=== PATIENT | female | born 1990 | race Two or more races ===

== ENCOUNTER 2024-07-11 12:17 | Emergency (ER) | payer MEDICAID, SELFPAY ==
[2024-07-11 13:03] VITALS: BP 128/96; PULSE 72; RESP 18; TEMP 36.8; O2SAT 99; BMI 24.5
--- NOTE | 2024-07-11 13:18 | XR_ITS ---
EXAMINATION: US OB <= 14 weeks fetus ORDERING PROVIDER: Selma Archuleta NP HISTORY: Generalized abdominal pain, 9 weeks per patient. Denies vaginal bleeding. TECHNIQUE: Multiplanar still ultrasonography of the pelvis was performed using grayscale imaging, supplemented by color and spectral Doppler as needed. Images were performed transabdominally . COMPARISON: None. FINDINGS: Last Menstrual Period: 05/08/2024 Uterus measures 11.3 x 7.9 x 9.2 cm. Gravid uterus. Mean gestational sac diameter 4.2 cm. [place]-rump length 2.5 cm. Yolk sac 0.4 cm. heart rate 158 bpm. No subchorionic hemorrhage identified. Clinical age 9 weeks 1 day. Sonographic age by crown-rump length 9 week 1 day. Cervical length 3.8 cm. Right ovary measures 2.6 x 1.0 x 2.3 cm with color and Doppler flow. Left ovary measures 1.9 x 1.2 x 2.2 cm with color and Doppler flow. No free fluid. No adnexal masses identified. IMPRESSION: Single live intrauterine gestation with concordant sonographic and clinical dates.
--- NOTE | 2024-07-11 13:19 | EDRME_ITS ---
Rapid Medical Screening Exam RME Arrival date/time: 07/11/24 12:17 This is a 34-year-old female that comes in with complaints of abdominal pain for the past 2 weeks. Patient reports that she is approximately 9 weeks . Patient is a 7 para 6. Patient also complains of urinary symptoms. Patient complains of nausea vomiting and headache with the . Patient also complains of dysuria and urinary frequency. I have greeted and performed a focused initial assessment of this patient. Init ial appropriate labs ordered at this time. A comprehensive ED assessment and evaluation of the patient and analysis of all test and completion of medical decision making process will be conducted by additional ED provider. Chief Complaint: Abdominal Pain Time Seen by Provider: 07/11/24 12:47 Vital signs: Vital Signs Temperature 98.2 F 07/11/24 13:03 Pulse Rate 72 07/11/24 13:03 Respiratory Rate 18 07/11/24 13:03 Blood Pressure 128/96 H 07/11/24 13:03 Pulse Oximetry (%) 99 07/11/24 13:03 Oxygen Delivery Method Room Air 07/11/24 13:03
[2024-07-11 13:40] LABS: Basophils # (Auto) 0.1 Thou/mm3 (0.0-0.2); Basophils % (Auto) 1 % (0-2.5); Eosinophils # (Auto) 0.1 Thou/mm3 (0.0-0.5); Eosinophils % (Auto) 1 % (0-10); Hematocrit 35.8 % (36.0-46.0); Hemoglobin 12.2 g/dL (12.0-16.0); Immature Granulocytes % (Auto) 0 % (0-0); Immature Granulocytes Auto 0.02 Thou/mm3 (0.00-0.00); Lymphocytes # (Auto) 1.5 Thou/mm3 (1.0-4.8); Lymphocytes % (Auto) 20 % (10-50); Mean Corpuscular HGB Conc 34.1 g/dl (31.0-37.0); Mean Corpuscular Hemoglobin 30.4 pg (25.0-35.0); Mean Corpuscular Volume 89 fL (80-100); Monocytes # (Auto) 0.5 Thou/mm3 (0.0-0.8); Monocytes % (Auto) 6 % (0-12); Neutrophils # (Auto) 5.6 Thou/mm3 (1.8-7.7); Neutrophils % (Auto) 72 % (37-80); Nucleated Red Blood Cell % 0 /100 WBC (0); Platelet Count 218 Thou/mm3 (140-440); RDW Standard Deviation 43.8 fL (36.4-46.3); Red Blood Count 4.01 Miln/mm3 (4.00-5.20); White Blood Count 7.8 Thou/mm3 (3.6-11.0)
[2024-07-11 14:57] LABS: Alanine Aminotransferase 8 U/L (10-49); Albumin, Serum 4.3 gm/dL (3.5-5.0); Albumin/Globulin Ratio 1.5 (1.2-2.2); Alkaline Phosphatase 45 U/L (46-116); Anion Gap 9 (7-16); Aspartate Amino Transferase 12 U/L (0-34); BUN/Creatinine Ratio 9 Ratio (12-20); Bilirubin,Total 0.7 mg/dL (0.3-1.2); Blood Urea Nitrogen 6 mg/dL (9-23); Calcium 9.2 mg/dL (8.3-10.6); Calcium (Corrected) 9.2 mg/dL (8.5-10.1); Carbon Dioxide 21.8 mMol/L (20.0-31.0); Chloride 104 mMol/L (98-107); Creatinine (Component) 0.7 mg/dL (0.6-1.3); Estimated Creatinine Clearance 91.9 mL/min (>60); Globulin 2.9 gm/dL (2.3-3.5); Glucose 74 mg/dL (74-106); Lipase 35 U/L (12-53); Osmolality,Calculated 266 (275-295); Potassium 3.5 mMol/L (3.4-5.1); Sodium 135 mMol/L (136-145); Total Protein 7.2 gm/dL (5.7-8.2); eGFR > 60 See Note
[2024-07-11 15:29] LABS: Beta HCG,Quantitative 218006 mIU/mL (<5.0)
--- NOTE | 2024-07-11 15:43 | PD.EDADULT ---
ED General RME/HPI General Chief complaint: Abdominal Pain Stated complaint: ABD PAIN, POSS UTI, 9 WKS PREG Time Seen by Provider: 07/11/24 12:47 Arrival date/time: 07/11/24 12:17 RME / HPI RME / HPI narrative: 07/11/24 12:17 This is a 34-year-old female that comes in with complaints of abdominal pain for the past 2 weeks. Patient reports that she is approximately 9 weeks . Patient is a 7 para 6. Patient also complains of urinary symptoms. Patient complains of nausea vomiting and headache with the . Patient also complains of dysuria and urinary frequency. I have greeted and performed a focused initial assessment of this patient. Initial appropriate labs ordered at this time. A comprehensive ED assessment and evaluation of the patient and analysis of all test and completion of medical decision making process will be conducted by additional ED provider. DR. ALBRECHT MAIN ED EVALUATION: Related Data Home Medications ?Medication ?Instructions ?Recorded ?Confirmed No Known Home Medications 09/15/20 09/15/20 Allergies Allergy/AdvReac Type Severity Reaction Status Date / Time No Known Allergies Allergy Verified 07/11/24 12:21 Course Orders Category Date Time Status US OB <= 14 weeks fetus Stat Exams 07/11/24 13:18 Completed ABO/RH Type - Stat Lab 07/11/24 13:29 Completed Beta HCG,Quantitative Stat Lab 07/11/24 13:29 Completed CBC Stat Lab 07/11/24 13:29 Completed Comprehensive Metabolic Panel Stat Lab 07/11/24 13:29 Completed Lipase Stat Lab 07/11/24 13:29 Completed Urinalysis, C/S if Indicated Stat Lab 07/11/24 13:18 Ordered Urine Culture Stat Lab 07/11/24 13:19 Ordered Vital Signs Vital signs: Vital Signs Temperature 98.2 F 07/11/24 13:03 Pulse Rate 72 07/11/24 13:03 Respiratory Rate 18 07/11/24 13:03 Blood Pressure 128/96 H 07/11/24 13:03 Pulse Oximetry (%) 99 07/11/24 13:03 Oxygen Delivery Method Room Air 07/11/24 13:03 Medical Decision Making MDM Narrative MDM Narrative: IJesica, am scribing for and in the presence of Dr. Albrecht. Lab Data 07/11/24 13:29 07/11/24 13:29 Labs: Lab Results 07/11/24 Range/Units 13:29 WBC 7.8 (3.6-11.0) Thou/mm3 RBC 4.01 (4.00-5.20) Miln/mm3 Hgb 12.2 (12.0-16.0) g/dL Hct 35.8 L (36.0-46.0) % MCV 89 (80-100) fL MCH 30.4 (25.0-35.0) pg MCHC 34.1 (31.0-37.0) g/dl RDW Std Deviation 43.8 (36.4-46.3) fL Plt Count 218 (140-440) Thou/mm3 Neut % (Auto) 72 (37-80) % Lymph % (Auto) 20 (10-50) % [place] % (Auto) 6 (0-12) % Eos % (Auto) 1 (0-10) % Baso % (Auto) 1 (0-2.5) % Neut # (Auto) 5.6 (1.8-7.7) Thou/mm3 Lymph # (Auto) 1.5 (1.0-4.8) Thou/mm3 [place] # (Auto) 0.5 (0.0-0.8) Thou/mm3 Eos # (Auto) 0.1 (0.0-0.5) Thou/mm3 Baso # (Auto) 0.1 (0.0-0.2) Thou/mm3 Immature Gran # (Auto) 0.02 H (0.00-0.00) Thou/mm3 Absolute Nucleated RBC 0.00 (0.00-0.00) Thou/mm3 Immature Gran % 0 (0-0) % Nucleated RBC % 0 (0) /100 WBC Sodium 135 L (136-145) mMol/L Potassium 3.5 (3.4-5.1) mMol/L Chloride 104 (98-107) mMol/L Carbon Dioxide 21.8 (20.0-31.0) mMol/L Anion Gap 9 (7-16) BUN 6 L (9-23) mg/dL Creatinine 0.7 (0.6-1.3) mg/dL Estim Creat Clear Calc 91.9 (>60) mL/min eGFR > 60 (60 - ) See Note BUN/Creatinine Ratio 9 L (12-20) Ratio Glucose 74 (74-106) mg/dL Calculated Osmolality 266 L (275-295) Calcium 9.2 (8.3-10.6) mg/dL Corrected Calcium 9.2 (8.5-10.1) mg/dL Total Bilirubin 0.7 (0.3-1.2) mg/dL AST 12 (0-34) U/L ALT 8 L (10-49) U/L Alkaline Phosphatase 45 L (46-116) U/L Total Protein 7.2 (5.7-8.2) gm/dL Albumin 4.3 (3.5-5.0) gm/dL Globulin 2.9 (2.3-3.5) gm/dL Albumin/Globulin Ratio 1.5 (1.2-2.2) Lipase 35 (12-53) U/L Beta HCG, Quant 261246 (<5.0) mIU/mL Blood Type A Positive Comment Comment Blood Bank Wristband ID Yes Discharge Plan Prescriptions/Referrals Prescriptions/Med Rec: No Action No Known Home Medications Referrals: Amirah Sosa NP [Primary Care Provider] - In 1 week Patient/Caregiver Discharge Instructions Print Language: Lithuanian
[2024-07-11 16:39] LABS: Collection Type, Urine Voided
[2024-07-11 17:48] LABS: Bacteria,Urine Rare; Bilirubin,Urine Negative (Negative); Blood,Urine Negative (Negative); Clarity,Urine Clear (Clear/Hazy); Color,Urine Yellow (Lt Yel-Yel); Culture Indicated,Urine Not Indicated; Glucose, Urine Negative (Negative); Ketones,Urine Negative (Negative); Leukocyte Esterase,Urine Negative (Negative); Nitrite,Urine Negative (Negative); Protein,Urine Negative (Neg - Trace); RBC,Urine 5 /hpf (0-3); Specific Gravity,Urine 1.026 (1.001-1.035); Squamous Epithelial Cell,Urine 7 /hpf (0-5); Urobilinogen,Urine Negative mg/dL (0.0-1.0); WBC,Urine 1 /hpf (0-5)
--- NOTE | 2024-07-11 19:52 | EDNOTE_ITS ---
ED Abdominal Pain RME/HPI General Chief Complaint: Abdominal Pain Stated complaint: ABD PAIN, POSS UTI, 9 WKS PREG Time seen by provider: 07/11/24 12:47 Arrival date/time: 07/11/24 12:17 Source: patient Mode of arrival: ambulatory Limitations: no limitations RME / HPI RME / HPI narrative: 07/11/24 12:17 This is a 34-year-old female that comes in with complaints of abdominal pain for the past 2 weeks. Patient reports that she is approximately 9 weeks . Patient is a 7 para 6. Patient also complains of urinary symptoms. Patient complains of nausea vomiting and headache with the . Patient also complains of dysuria and urinary frequency. I have greeted and performed a focused initial assessment of this patient. Initial appropriate labs ordered at this time. A comprehensive ED assessment and evaluation of the patient and analysis of all test and completion of medical decision making process will be conducted by additional ED provider. Dr. Gordillo?s Main ED Evaluation: 34-year-old female history of appendectomy presents to the ED with a two-week history of abdominal pain, worsening over the past two days, accompanied by dysuria and urinary frequency. She reports being approximately 9 weeks () and experiencing nausea, vomiting, and headache associated with the p regnancy. She denies fever, vaginal bleeding, or other acute symptoms. Related Data Previous Rx's ?Medication ?Instructions ?Recorded nitrofurantoin macrocrystal 100 mg 100 mg PO BID #20 c aps 07/11/24 capsule Allergies Allergy/AdvReac Type Severity Reaction Status Date / Time No Known Allergies Allergy Verified 07/11/24 12:21 Review of Systems Review of Systems Systems Reviewed: All systems reviewed, normal except as documented Past Medical History Past Medical History NEUROLOGIC: Positive Migraine; Negative Neurological Disorders or Seizures CARDIAC: Negative Cardiac Disorders or Congestive Heart Failure RESPIRATORY: Negative Chronic Obstructive Pulmonary Disease (COPD) or Asthma GASTROINTESTINAL: Negative Gastrointestinal Disorders GENITOURINARY: Positive Genitourinary Disorders (UTI) and Kidney Stones; Negative Renal Disease REPRODUCTIVE: Positive Genital Herpes and Previous Pregnancies; Negative Endometriosis, Pelvic Inflammatory Disease or Uterine Prolapse MUSCULOSKELETAL: Negative Musculoskeletal Disorders ENDOCRINE: Negative Endocrine Disorders, Diabetes Mellitus Type 1 or Diabetes Mellitus Type 2 HEMATOLOGIC: Negative Blood Disorders or Anemia PSYCHO/SOCIAL: Positive Anxiety and Post Traumatic Stress Disorder OTHER HISTORY: Positive Hospitalization; Negative Autoimmune Disease, Falls, Blood Transfusions, Blood Transfusion Nell ction, Anesthesia Reactions or Cancer Family History FAMILY HISTORY: Negative Family Psychiatric Problems, Family Respiratory Disorders, Family Cardiac Disorders, Family Gastrointestinal Problems, Family Cancer, Family Surgery or Family Anesthesia Reaction Surgical History SURGICAL: Positive Section Social History SMOKING STATUS: Never smoker ED Exam Narrative Physical exam: GENERAL: In general the patient is awake, interactive, in an emergency department gurney. HEAD/EYES/EARS/NOSE/THROAT: normo-cephalic, atraumatic, mucus membranes are moist. No cervical tenderness palpation midline. Supple neck. CARDIOVASCULAR: regular rate and regular rhythm, no murmurs, heart sounds are not distant, strong pulses in all four extremities that are equal and symmetric bilateral upper and lower extremities, normal capillary refill. CHEST/PULMONARY: normal chest rise and fall, good air movement, clear to auscultation bilaterally, normal inspiratory to expiratory ratios without evidence of respiratory distress. ABDOMEN: soft, not tender, no masses appreciated BACK: normal range of motion without pain. NEUROLOGICAL: cranio-facial features are symmetric, moves all four extremities equally without obvious limitations or weakness. EXTREMITY: no tenderness to palpation over the long bones or large joints of the bilateral upper and lower extremities, no joint swelling, no joint erythema, no signs of trauma, no unilateral leg swelling and no peripheral edema. SKIN: warm, dry, well-perfused, no jaundice, no rash, no telangiectasias or petechia. PSYCH: calm, cooperative, no evidence of psychosis or agitation General Limitations: Present no limitations Course Quality Measures none Orders Category Date Time Status US OB <= 14 weeks fetus Stat Exams 07/11/24 13:18 Completed ABO/RH Type - Stat Lab 07/11/24 13:29 Completed Beta HCG,Quantitative Stat Lab 07/11/24 13:29 Completed CBC Stat Lab 07/11/24 13:29 Completed Comprehensive Metabolic Panel Stat Lab 07/11/24 13:29 Completed Lipase Stat Lab 07/11/24 13:29 Completed Urinalysis, C/S if Indicated Stat Lab 07/11/24 16:25 Completed Urine Culture Stat Lab 07/11/24 16:25 Received Vital Signs Vital signs: Vital Signs Temperature 98.2 F 07/11/24 13:03 Pulse Rate 72 07/11/24 13:03 Respiratory Rate 18 07/11/24 13:03 Blood Pressure 128/96 H 07/11/24 13:03 Pulse Oximetry (%) 99 07/11/24 13:03 Oxygen Delivery Method Room Air 07/11/24 13:03 Abdominal Pain MDM MDM Narrative MDM Narrative:: Differential diagnoses include ectopic , urinary tract infection (UTI), asymptomatic bacteremia, and discomfort from a growing fetus. Scribe Attestation: I, Emmanuel Sosa, am scribing for and in the presence of Dr. Gordillo. Provider Notation: Although this document has been carefully reviewed, there may still be some phonetic and other typographical errors. These errors are purely grammatical due to imperfections in the software program and should not be construed in any way to compromise the substance of the patient's medical care during this visit. Patient data External records reviewed:: [facility] previous records Clinical information provided by:: patient Social determinants that could affect healthcare access:: none Patient has the following chronic illnesses:: see PMH How is presenting disease/condition affected by chronic disease/condition?: uneffected by Evaluation data The following diagnostics were reviewed and interpreted by me:: lab results and radiology exam(s) Lab and/or radiology exams considered but not ordered:: na Interpretation Summary: I personally reviewed the radiology data and agree with the radiologist's interp retation. EXAMINATION: US OB <= 14 weeks fetus ORDERING PROVIDER: Selma Archuleta NP HISTORY: Generalized abdominal pain, 9 weeks per patient. Denies vaginal bleeding. TECHNIQUE: Multiplanar still ultrasonography of the pelvis was performed using grayscale imaging, supplemented by color and spectral Doppler as needed. Images were performed transabdominally . COMPARISON: None. FINDINGS: Last Menstrual Period: 05/08/2024 Uterus measures 11.3 x 7.9 x 9.2 cm. Gravid uterus. Mean gestational sac diameter 4.2 cm. [place]-rump length 2.5 cm. Yolk sac 0.4 cm. heart rate 158 bpm. No subchorionic hemorrhage identified. Clinical age 9 weeks 1 day. Sonographic age by crown-rump length 9 week 1 day. Cervical length 3.8 cm. Right ovary measures 2.6 x 1.0 x 2.3 cm with color and Doppler flow. Left ovary measures 1.9 x 1.2 x 2.2 cm with color and Doppler flow. No free fluid. No adnexal masses identified. IMPRESSION: Single live intrauterine gestation with concordant sonographic and clinical dates. Dictated By: Cortez Rich MD Medications / Prescriptions Medications or Prescriptions considered but not ordered:: na Medication administrations:: as above, if any Consultations Consultation(s) initiated? (list below): No Diagnosis Differential diagnosis abdominal pain: other (see narrative) Most likely diagnosis given after review of the tests above:: see clinical impression below Admission Indicated Admission indicated?: not indicated Admission Request Was there a request for admission?: No Disposition Plan Disposition Plan: Discharge Discharge Attestation Discharge Attestation: The patient and all family members were given an opportunity to ask questions and understood the discharge instructions. Discharge instructions specifically effects, indications for sooner follow up or return to the emergency department, and the expected course of current diagnosis. Patient condition: Stable Discharge Plan Plan Patient Disposition: HOME (Self Care) Patient condition on transfer: Stable Prescriptions/Referrals Prescriptions/Med Rec: New nitrofurantoin macrocrystal 100 mg capsule 100 mg PO BID Qty: 20 0RF Rx Instructions: must administer with a meal/food Referrals: Amirah Sosa NP [Primary Care Provider] - 07/16/24 Problem List Clinical Impression: Asymptomatic bacteriuria, First trimester Patient/Caregiver Discharge Instructions Education Materials: Dysuria Additional Instructions: -Today your white count was normal at 7.8. Your hemoglobin is stable at 12. Kidney function is normal. Your urine shows that you are slightly dehydrated with 1 white cell, 7 squamous cells and rare bacteria. -The ultrasound shows: Uterus measures 11.3 x 7.9 x 9.2 cm. Gravid uterus. Mean gestational sac diameter 4.2 cm. [place]-rump length 2.5 cm. Yolk sac 0.4 cm. heart rate 158 bpm. No subchorionic hemorrhage identified. Clinical age 9 weeks 1 day. Sonographic age by crown-rump length 9 week 1 day. Cervical length 3.8 cm. Right ovary measures 2.6 x 1.0 x 2.3 cm with color and Doppler flow. Left ovary measures 1.9 x 1.2 x 2.2 cm with color and Doppler flow. No free fluid. No adnexal masses identified. IMPRESSION: Single live intrauterine gestation with concordant sonographic and clinical dates. 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 You have elected to take the antibiotics for bacteria in your urine. Please complete them. You will need to follow-up with your primary care and/or TEXT[employer]ER to get the results of the urine culture that takes 72 hours to come back. -Return to the emergency department before your appointment if you are having back pain, fever, vomiting, any vaginal discharge, or any other concerns Print Language: Somali Stand Alone Forms: [employer] Award Info., Patient Portal Info Letter
== END 2024-07-11 20:13 | disposition home or self-care (01) ==
PROVIDERS: Nurse Practitioner Family; Emergency Provider Emergency Medicine; PCP Nurse Practitioner Family
DX: O99.891 Other specified diseases and conditions complicating pregnancy (principal); R82.71 Bacteriuria; Z3A.09 9 weeks gestation of pregnancy
CPT/HCPCS: 36415; 76801; 80053; 81001; 83690; 84702; 85025; 86900; 86901; 87086; 99284

== ENCOUNTER 2024-12-19 09:30 | Observation (INO) | payer SELFPAY ==
[2024-12-19 09:40] VITALS: BP 128/71; PULSE 75; RESP 16; RESP 98; TEMP 36.8
[2024-12-19 09:41] VITALS: BP 128/71; PULSE 75
[2024-12-19 09:46] VITALS: BMI 29.2
[2024-12-19 10:13] VITALS: BP 112/61; PULSE 77
[2024-12-19 10:42] VITALS: BP 113/62; PULSE 76
[2024-12-19 11:11] VITALS: BP 113/62; PULSE 73
== END 2024-12-19 11:25 | disposition home or self-care (01) ==
PROVIDERS: Admitting Provider Obstetrics & Gynecology; Visit Provider Obstetrics & Gynecology
DX: O26.893 Other specified pregnancy related conditions, third trimester (principal); Z3A.32 32 weeks gestation of pregnancy; R10.2 Pelvic and perineal pain
CPT/HCPCS: 59025; 59899

== ENCOUNTER 2025-02-05 10:30 | Inpatient (IN) | payer MEDICAID, SELFPAY ==
--- NOTE | 2025-02-04 08:14 | ESHP_ITS ---
RE: KI BRIAN : 1990 DATE OF ADMISSION: 02/05/2025 HISTORY OF PRESENT ILLNESS: This is a 35-year-old 7, para 6-0-0-6 with due date of 02/12 with intrauterine at 39 weeks' gestation who presents for repeat delivery. She desires voluntary sterilization. She denies any leaking or bleeding. She reports normal movement. She has occasional contractions. ALLERGIES: NO KNOWN DRUG ALLERGIES. MEDICATIONS: 1. multivitamin 1 p.o. daily. 2. Aspirin 81 mg 1 p.o. daily. 3. Ferrous sulfate 325 mg 1 p.o. daily. PAST MEDICAL HISTORY: Genital herpes, lipoma, delivery, posttraumatic stress disorder, rubella nonimmune, depression, right ovarian cyst, advanced maternal age, appendicitis. PAST SURGICAL HISTORY: delivery in 2016 and 2020 and appendectomy. FAMILY HISTORY: Mother with migraine headaches, diabetes, hypertension. OBSTETRIC HISTORY: 2001, 40-week normal vaginal delivery 7 pounds 2 ounce female, no complications. 2004, 40 week, normal vaginal delivery, 7 pound male, no complications. 2007, 40-week normal vaginal delivery, 7 pound female, no complications. 2015, 40 week, normal vaginal delivery, 8 pound male, no complications. 2016, 40 weeks delivery, 7 pound 14 ounce male, complicated by genital herpes. 2020, 40-week delivery, 7 pounds 2 ounce female. REVIEW OF SYSTEMS: She denies any chest pain, palpitations, cough, fever, shortness of breath or lower extremity pain. She denies any headache, change in vision or right upper quadrant pain. PHYSICAL EXAMINATION: VITAL SIGNS: Blood pressure 120/74, heart rate 88, respirations 18, temperature 98.6. HEENT: Oropharynx and sclerae are clear. LUNGS: Clear to auscultation bilaterally. HEART: Regular rate and rhythm. ABDOMEN: Gravid term size, old Pfannenstiel scar noted. EXTREMITIES: Nontender. SKIN: No gross rashes or lesions. NEUROLOGIC: No focal deficits. ASSESSMENT AND PLAN: Intrauterine at 39 weeks. Previous delivery, elects repeat delivery. Multiparity desires voluntary sterilization. PLAN: Repeat delivery and bilateral tubal ligation. Informed consent was obtained. The patient was made aware of the risks, complications, alternatives, and benefits of delivery and bilateral tubal ligation. She is aware of the failure rate and the increased risk of tubal ectopic gestation if occurs. She is aware that vasectomy is simpler, easier and safer with a lower failure rate. She is aware of the reversible methods of control. She declines those options. DT: 06:49:29 TT: 08:00:00 Ref: [id number] - TID: [id number] [facility]
[2025-02-04 12:08] LABS: Basophils # (Auto) 0.1 Thou/mm3 (0.0-0.2); Basophils % (Auto) 1 % (0-2.5); Eosinophils # (Auto) 0.1 Thou/mm3 (0.0-0.5); Eosinophils % (Auto) 1 % (0-10); Hematocrit 35.4 % (36.0-46.0); Hemoglobin 11.8 g/dL (12.0-16.0); Immature Granulocytes Auto 0.09 Thou/mm3 (0.00-0.00); Lymphocytes # (Auto) 1.7 Thou/mm3 (1.0-4.8); Lymphocytes % (Auto) 23 % (10-50); Mean Corpuscular HGB Conc 33.3 g/dl (31.0-37.0); Mean Corpuscular Hemoglobin 31.1 pg (25.0-35.0); Mean Corpuscular Volume 93 fL (80-100); Monocytes # (Auto) 0.5 Thou/mm3 (0.0-0.8); Monocytes % (Auto) 6 % (0-12); Neutrophils # (Auto) 5.2 Thou/mm3 (1.8-7.7); Neutrophils % (Auto) 68 % (37-80); Nucleated Red Blood Cell # 0.00 Thou/mm3 (0.00-0.00); Nucleated Red Blood Cell % 0 /100 WBC (0); Platelet Count 189 Thou/mm3 (140-440); RDW Standard Deviation 55.8 fL (36.4-46.3); Red Blood Count 3.79 Miln/mm3 (4.00-5.20); White Blood Count 7.6 Thou/mm3 (3.6-11.0)
[2025-02-04 12:20] LABS: Alanine Aminotransferase 15 U/L (10-49); Albumin, Serum 4.1 gm/dL (3.5-5.0); Albumin/Globulin Ratio 1.5 (1.2-2.2); Alkaline Phosphatase 120 U/L (46-116); Anion Gap 12 (7-16); Aspartate Amino Transferase 24 U/L (0-34); BUN/Creatinine Ratio 13 Ratio (12-20); Bilirubin,Total 0.6 mg/dL (0.3-1.2); Blood Urea Nitrogen 8 mg/dL (9-23); Calcium 9.1 mg/dL (8.3-10.6); Calcium (Corrected) 9.1 mg/dL (8.5-10.1); Carbon Dioxide 21.3 mMol/L (20.0-31.0); Chloride 106 mMol/L (98-107); Creatinine (Component) 0.6 mg/dL (0.6-1.3); Globulin 2.7 gm/dL (2.3-3.5); Glucose 81 mg/dL (74-106); Osmolality,Calculated 274 (275-295); Potassium 3.8 mMol/L (3.4-5.1); Sodium 139 mMol/L (136-145); Total Protein 6.8 gm/dL (5.7-8.2); eGFR > 60 See Note
[2025-02-04 12:24] LABS: INR 0.9 (0.9-1.3); Partial Thromboplastin Time 26.3 Seconds (22.0-36.0); Prothrombin Time 9.6 Seconds (9.0-12.2)
[2025-02-04 12:39] LABS: Syphilis Nonreactive (Nonreactive)
[2025-02-05] VITALS (30 sets, daily range): BP systolic 117–144; BP diastolic 57–88; PULSE 66–96; RESP 15–20; TEMP 36.8–36.9; O2SAT 97–100; BMI 30.7
[2025-02-05] MEDS: RINGERS LACTATED 1000 ML 1,000 ML 100 ML IV (11:15)
[2025-02-05] MEDS: ceFAZolin/D5W 2 GM IV 2 GM/100 ML BAG IV (12:18)
[2025-02-05] MEDS: FAMOTIDINE INJ 10 MG/ML VIAL 2 ML 20 MG IV (12:19)
--- NOTE | 2025-02-05 12:40 | PD.LDDS ---
DS: Providers Provider Date of admission: 02/05/25 10:30 Primary care physician: Jun Gutierres MD Admitting Provider: Dwight Huerta MD Attending Provider on Admission: Dwight Huerta MD Attending Provider on DC: Dwight Huerta MD Discharging Provider: Dwight Huerta MD DS: Diagnosis Problem List Completed Was Problem List Reviewed/Reconciled?: Yes Summary/Hosp Course Peripartum Data Procedures: Procedures Operation Date: 02/05/25 12:45 <No data on this case meets the specified criteria> Time Spent with Patient Time attestation: Total time spent providing and/or coordinating discharge services: Exam Vital Signs Pulse BP Pulse Ox 77 117/71 100 02/05/25 11:10 02/05/25 11:10 02/05/25 12:31 Discharge Plan Plan Patient Disposition: HOME (Self Care) Patient condition on transfer: Stable Prescriptions/Referrals Prescriptions/Med Rec: New ibuprofen 600 mg tablet 600 mg PO Q6H PRN (Reason: pain) Qty: 30 0RF Continued ferrous sulfate [FeroSul] 325 mg (65 mg iron) tablet 325 mg PO QDAY Patient Comments: TAKE ONE TABLET BY MOUTH EVERY DAY VITAMIN WITH ORANGE JUICE Vitamin 27 mg iron- 800 mcg tablet 1 tab PO QDAY Patient Comments: TAKE ONE TABLET BY MOUTH EVERY DAY VITAMIN Referrals: Jun Gutierres MD [Primary Care Provider, Family Practice] Patient/Caregiver Discharge Instructions Discharge Activity: activity as tolerated Other Discharge Activity Instructions:: follow up office 1 week. She already has a Rx for [place]. Education Materials: C Section Dc Print Language: Turkmen Stand Alone Forms: [employer] Award Info., Patient Portal Info Letter Planned Discharge Date 02/07/25
--- NOTE | 2025-02-05 12:41 | ESOP_ITS ---
Operative Note - KINDERGARTEN ASSISTANT Procedure Date of procedure: 02/05/25 Procedure Performed: Repeat low-transverse section via Fenistil skin incision Bilateral salpingectomy Indication: Intrauterine at 39 weeks and 0 days Previous delivery Elects repeat delivery Multiparity desires voluntary sterilization Pre-Op diagnosis: Intrauterine at 39 weeks and 0 days Previous delivery Elects repeat delivery Multiparity desires voluntary sterilization Post-Op diagnosis: Intrauterine at 39 weeks and 0 days Previous delivery Elects repeat delivery Multiparity desires voluntary sterilization Uterine atony Anesthesia type: Spinal Procedure description: After proper informed consent was obtained and the patient was made aware of the risks, complications, alternatives and benefits of the proposed procedure she was taken to the operating room where she underwent induction of spinal anesthesia. She was prepped and draped in the usual sterile fashion. A timeout was performed.? A Pfannenstiel skin incision was made with the scalpel and carried through to the underlying layer of fascia with the Bovie. The fascia was nicked in the midline incision and the incision was extended bilaterally with the Bovie. The inferior aspect of the fascial incision was grasped with Dave clamps elevated and the underlying rectus muscle dissected off with the Bovie. The superior aspect the fascial incision was grasped with Dave clamps elevated and the underlying rectus muscle dissected off with the Bovie. The rectus muscles were in the midline. The peritoneum was grasped between 2 Rogers clamps and entered sharply with the Metzenbaum scissors. The peritoneum was extended superiorly and inferiorly with good visualization of the bladder. The vesicouterine peritoneum was incised transversely and the bladder flap created digitally. A Yousuf blade was inserted. A low transverse incision was made in the uterus with a scapel and the incision was extended digitally. The infant's head delivered and the mouth and nose were suctioned with the bulb suction. The shoulder and body delivered atraumatically. The cord was clamped after 30 second delayed cord clamping and the cord was cut.? The infant was handed off to the waiting Pediatric staff, cord blood was collected for lab testing. The placenta was removed complete and intact. The uterus was exteriorized and cleared of all clots and debris. The uterus was initially atonic but responded to uterotonic's. The uterine incision was closed with #1-0 chromic catgut suture in a running interlocking fashion. A second layer of the same suture was used to imbricate the first layer and obtain excellent hemostasis. The vesicouterine peritoneum was closed with 2-0 chromic catgut suture in a running fashion. Atte ntion was turned to the left fallopian tube which was grasped at the fimbriated end with a Westdale clamp and using the Enseal X-1 large jaw a left salpingectomy was performed. Hemostasis achieved. Attention was turned to the right fallopian tube which was grasped at the fimbriated end with a Westdale clamp and using the Enseal X-1 large jaw a left salpingectomy was performed. Hemostasis achieved. T he firm uterus was returned to the abdomen. The gutters were cleared of all clots and debris. The adnexae were revisualized along with the lower uterine segment and all was hemostatic. The peritoneum was closed with 0 chromic catgut suture in running fashion. The rectus muscle was closed with 0 chromic catgut suture. The fascia was closed with 0 Vicryl beginning at each angle and ending in the center in a running fashion. The subcutaneous tissue was irrigated with warmed normal saline solution and found to be hemostatic. The subcutaneous tissue was closed with 2-0 chromic catgut suture in a running fashion. The skin was closed with 4-0 Monocryl. A Dermabond Prineo dressing was applied and a sterile pressure dressing was applied.? She tolerated the procedure well. Counts were correct. I discussed with the patient the nature of her condition, intraoperative findings and expectation for recovery all questions answered. Fluids: other (see anesthesia record) Fluid amount (mL): 800 Urine output (mL): 150 Specimen: left tube and right tube Estimated blood loss (ml): 800 Findings: Live female infant Apgars 8 and 9 Cephalic presentation Weight 3410g Clear amniotic fluid Placenta removed complete and intact Uterus ovaries and fallopian tubes grossly within normal limits Complications: other (Uterine atony responding to Pitocin. Methergine and Cytotec, also given TXA) Surgical staff Operation Date: 02/05/25 12:45 <No data on this case meets the specified criteria> CARLOS Romero's [employer] SUPERVISORHarrison Huerta Surgeon Diagnosis Discharge Diagnosis (1) delivery delivered: Status: Acute (2) Status post bilateral salpingectomy: Status: Acute (3) Uterine atony: Status: Acute Problem List Completed Was Problem List Reviewed/Reconciled?: Yes
[2025-02-05] MEDS: ACETAMINOPHEN IVPB 1,000 MG/100 ML VIAL 250 MG IV (15:24)
[2025-02-05 19:42] LABS: Basophils # (Auto) 0.1 Thou/mm3 (0.0-0.2); Basophils % (Auto) 0 % (0-2.5); Eosinophils # (Auto) 0.0 Thou/mm3 (0.0-0.5); Eosinophils % (Auto) 0 % (0-10); Hematocrit 32.6 % (36.0-46.0); Hemoglobin 11.4 g/dL (12.0-16.0); Immature Granulocytes Auto 0.17 Thou/mm3 (0.00-0.00); Lymphocytes # (Auto) 1.1 Thou/mm3 (1.0-4.8); Lymphocytes % (Auto) 6 % (10-50); Mean Corpuscular HGB Conc 35.0 g/dl (31.0-37.0); Mean Corpuscular Hemoglobin 31.4 pg (25.0-35.0); Mean Corpuscular Volume 90 fL (80-100); Monocytes # (Auto) 0.4 Thou/mm3 (0.0-0.8); Monocytes % (Auto) 2 % (0-12); Neutrophils # (Auto) 16.2 Thou/mm3 (1.8-7.7); Neutrophils % (Auto) 91 % (37-80); Nucleated Red Blood Cell # 0.00 Thou/mm3 (0.00-0.00); Nucleated Red Blood Cell % 0 /100 WBC (0); Platelet Count 195 Thou/mm3 (140-440); RDW Standard Deviation 51.4 fL (36.4-46.3); Red Blood Count 3.63 Miln/mm3 (4.00-5.20); White Blood Count 17.8 Thou/mm3 (3.6-11.0)
[2025-02-05] MEDS: OXYTOCIN in NS 20 units 20 UNIT/1,000 ML BAG 125 UNIT IV (21:02)
[2025-02-06] VITALS: BP 110/62; PULSE 71; RESP 16; TEMP 36.9; O2SAT 99
[2025-02-06] MEDS: KETOROLAC INJ 30 MG/ML VIAL IVP (00:51)
[2025-02-06 04:00] VITALS: BP 123/74; PULSE 67; RESP 18; TEMP 36.7; O2SAT 98
--- NOTE | 2025-02-06 05:18 | PC.NURSE ---
Notify MD Huerta of pt's complaint of itchiness on her arms and legs. MD Huerta at bedside talking to pt. made new orders.
--- NOTE | 2025-02-06 06:35 | ESPR_ITS ---
RE: KI BRIAN : 1990 DATE OF SERVICE: 02/06/2025 S: Postop day #1, the patient complains of itching abdomen and legs without any rash seen. The patient denies any chest pain, palpitations, shortness of breath, or lower extremity pain. She denies any dizziness or lightheadedness. She denies any nausea or vomiting. She is tolerating a regular diet. She is passing flatus. She is voiding without difficulty. O: Vital Signs: Blood pressure 123/74, heart rate 67, respirations 18, temperature 98.1, pulse oximetry is 98% on room air. Lungs: Clear to auscultation bilaterally. Heart: Regular rate and rhythm. Abdomen: Dressing dry and intact. Fundus is firm. Extremities: Nontender. LABORATORY DATA: Hemoglobin pre-delivery is 11.8, post-delivery is 11.4. ASSESSMENT: Postop day #1, status post delivery and bilateral salpingectomy. P: Benadryl p.r.n. for itching, likely secondary to opioid analgesia. Remove dressing. Discontinue IV. Encourage ambulation. counseling and support. Possible discharge home tomorrow. DT: 05:50:56 TT: 06:34:00 Ref: [id number] - TID: [id number]
[2025-02-06 07:50] VITALS: BP 118/71; PULSE 68; RESP 18; TEMP 36.7; O2SAT 97
[2025-02-06] MEDS: DOCUSATE SOD 100 MG CAPSULE PO (08:08)
[2025-02-06] MEDS: ACETAMINOPHEN 325 MG TABLET 650 MG PO (08:08)
[2025-02-06] MEDS: ENOXAPARIN SOD INJ 40 MG/0.4 ML SYRINGE SC (08:08)
[2025-02-06 11:40] VITALS: BP 106/66; PULSE 74; RESP 16; TEMP 36.8; O2SAT 99
[2025-02-06] MEDS: IBUPROFEN TAB 400 MG TABLET 800 MG PO ×2 (12:03→22:41)
[2025-02-06 15:15] VITALS: BP 100/60; PULSE 74; RESP 16; TEMP 36.9; O2SAT 99
[2025-02-06] MEDS: HYDROcodone/APAP 5/325 TABLET 1 TAB PO (15:25)
[2025-02-06 20:10] VITALS: BP 107/63; PULSE 73; RESP 16; TEMP 36.8; O2SAT 97
[2025-02-06] MEDS: HYDROcodone/APAP 5/325 TABLET 2 TAB PO (20:25)
[2025-02-07] VITALS: BP 103/65; PULSE 80; RESP 16; TEMP 37; O2SAT 98
[2025-02-07] MEDS: HYDROcodone/APAP 5/325 TABLET 2 TAB PO ×2 (02:30→08:39)
[2025-02-07 04:00] VITALS: BP 128/58; PULSE 80; RESP 18; TEMP 36.7; O2SAT 97
[2025-02-07] MEDS: IBUPROFEN TAB 400 MG TABLET 800 MG PO (06:33)
--- NOTE | 2025-02-07 06:56 | PD.LDDELS ---
Data (Adhikari) Data Hx Section: Yes : 7 Term: 6 : 0 Livin Abortions: Spontaneous & Theraputic: 0 Delivery Data (Adhikari) Labor Data ROM date: 02/05/25 ROM time: 13:07 Amniotic membrane rupture type: Artificial Amniotic fluid description: Clear Delivery Data delivery date: 02/05/25 [place] delivery time: 13:08 Placenta delivery date: 02/05/25 Placenta delivery time: 13:09 Delivered by: Dwight Huerta Delivery nurse: Tricia Jacques RN and Liat Ram RN [place] nurse: Monse Cabezas RN, Evette Hill RN Embossing Machine Operator at delivery: Yes (Nikole GILMAN) Support person(s) at delivery: FOB Other staff at delivery: Jermaine Banks CRNA, Riki Ramirez Delivery Method Delivery method: Low Transverse Presentation: Vertex Anesthesia Type Anesthesia Type: Spinal Anesthesia type: Spinal Placenta Placenta delivery description: Manual Removal Cord blood sent to lab: Yes cord blood collection: Cord Blood Type Episiotomy Episiotomy description: None Umbilical Cord cord description: 3 Vessels Data (Adhikari) [place] Data order: 1 [place]'s gender: Female weight (gms): 7 lb 8.284 oz Weight (pounds): 7 lbs and 8.3 ozs 1 minute: 9 5 minutes: 9
--- NOTE | 2025-02-07 07:18 | ESPR_ITS ---
RE: KI BRIAN : 1990 DATE OF SERVICE: 02/07/2025 SUBJECTIVE: Postop day #2: The patient denies any problem or complaint. OBJECTIVE: Vital Signs: Stable, afebrile. Lungs: Clear to auscultation bilaterally. Heart: Regular rate and rhythm. Abdomen: Incision clear and intact. Extremities: Nontender. ASSESSMENT: Postoperative day #2 status post delivery and bilateral salpingectomy, itching resolved. PLAN: Discharge home. Discharge instructions given. Follow up in the office in 1 week. DT: 06:57:29 TT: 07:16:00 Ref: [id number] - TID: [id number]
[2025-02-07 07:30] VITALS: BP 100/62; PULSE 69; RESP 17; TEMP 36.8; O2SAT 96
[2025-02-07] MEDS: ENOXAPARIN SOD INJ 40 MG/0.4 ML SYRINGE SC (08:38)
[2025-02-07] MEDS: DOCUSATE SOD 100 MG CAPSULE PO (08:39)
--- NOTE | 2025-02-07 12:19 | PC.NURSE ---
RN EXPLAINED WHAT THE BABY FRIENDLY SURVEY WAS ABOUT. PATIENT DECLINED TAKING THE SURVEY.
--- NOTE | 2025-02-07 16:27 | PC.SS ---
SPINNING LATHE OPERATOR conducted bedside contact with the patient to address nursing referral indicating patient possessed history of depression.? SPINNING LATHE OPERATOR introduced self and role.? At bedside with patient was Praveen ANTONY Cervantes.? Patient gave permission for FOB to be present during discussion.? Patient confirmed history of depression.? Patient stated currently involved with therapy.? Patient is not prescribed medication to address mood disorder.? Patient reports no impairment with daily functioning.? FOB reports no concerns with patient?s current emotional status.? Discussed with patient depression.? Patient reports understanding due to multiple deliveries.? , Clarisa; is the patient?s 7th child.? delivered via .? Patient plans on the infant.? OB services provided by Dr. Huerta.? Patient reports consistency with OB appointments following initial appointment.? Patient interacting appropriate with infant.? Patient plans on breast feeding the infant.? Patient is receiving WIC and SNAP.? Patient is not aligned with TANF.? Patient denies history of alcohol/drug use.? Patient denies history of domestic violence.? Patient denies history of CWS intervention.? Patient has access to appropriate supplies and equipment.? FOB will provide transportation upon discharge.? Patient describes possessing support system consisting of FOB and extended family.? SPINNING LATHE OPERATOR provided community resources to include [employer] and [employer].? No further intervention required at this time, vp digital marketing social media and crm will be available to address any further concerns.? SPINNING LATHE OPERATOR updated bedside nurse.?
== END 2025-02-07 12:55 | disposition home or self-care (01) | DRG 539 ==
LOC: S4SX 12:36 → S4NX 13:09
PROVIDERS: Admitting Provider Specialist; PCP Family Medicine; Visit Provider Specialist
PROC: 0UL70ZZ Occlusion of Bilateral Fallopian Tubes, Open Approach (ICD-10-PCS; CPT 59514; principal; 2025-02-05 12:30)
DX: O34.211 Maternal care for low transverse scar from previous cesarean delivery (principal); Z37.0 Single live birth; Z3A.39 39 weeks gestation of pregnancy; Z30.2 Encounter for sterilization; O62.2 Other uterine inertia
CPT/HCPCS: 36415; 80053; 85025; 85610; 85730; 86780; 86850; 86900; 86901; 86923; A4217; A4649; J0131; J0689; J1100; J1650; J1885; J2210; J2274; J2405; J2590; J3010; J3490; J7120; S0191; A9270; J2270